=== PATIENT | male | born 1975 | race Caucasian/White ===

== ENCOUNTER 2017-05-11 06:00 | Day surgery (SDC) | payer MEDICARE ==
[~2017-05-11] VITALS: Ht 188 cm; Wt 138.3 kg
--- NOTE | ~2017-05-11 | OP ---
PATIENT NAME: NILESH DUMONT MEDICAL RECORD: [id number] :79 LOCATION:D.OPS ADMISSION DATE: SURGEON: PHU BAKER MD DATE OF OPERATION: 05/11/2017 PREOPERATIVE DIAGNOSES: 1. Right inguinal lymphadenopathy. 2. Coronary artery disease. 3. Hypertension. 4. Diabetes mellitus. 5. Hyperlipidemia. 6. History of pulmonary embolus. 7. Chronic blood thinner use. PROCEDURE: 1. Right inguinal excisional lymph node biopsy. 2. Excision of right inguinal cyst. SURGEON: Phu Baker MD REPORT OF PROCEDURE: The patient's abdomen and right groin were prepped and draped in sterile fashion. An oblique incision was made in the femoral crease and electrocautery was used to dissect through subcutaneous tissue down to the enlarged lymph nodes. The lymph nodes were quite swollen and adherent to the surrounding fatty tissue. I was able to remove a single lymph node with the surrounding fatty tissue and sent it off for permanent specimen. The patient also had an enlarged erythematous mass, a little more medial over the pubic region. There was no purulence excised from this and I did a stab incision over top of it and penetrated the cavity. This did appear to be a cystic cavity and most consistent with a sebaceous cyst. I went ahead and just excised the sebaceous cyst and the surrounding tissues. The cyst in total was approximately 1.5 cm in size. We then irrigated out the wound thoroughly with normal saline. We took care to make sure there was no sign of any active bleeding. The deep tissues were reapproximated with interrupted 3-0 Vicryl. We then infused a total of 10 mL of 0.25% Marcaine with epinephrine. The skin incisions were closed with subcutaneous 5-0 Monocryl and dressed appropriately. COMPLICATIONS: None. CONDITION: Stable. ANESTHESIA: General endotracheal and local. BLOOD LOSS: Minimal. TRANSINT:[id number] Voice Confirmation ID: [id number] DOCUMENT ID: [id number] OPERATIVE REPORT [id number] NILESH DUMONT PHU BAKER MD at 0956 CC: JACLYN DUNCAN MD [id number] DICTATION DATE: 05/11/17 1003 DIAMOND ASSORTER: 05/11/17 1301 [facility] 05/11/17 [facility] [address] [place] [address]
[~2017-05-11 06:00] MED LIST: BETAPACE 80 MG80 MG PO; CATAPRES0.2 MG PO; COREG25 MG PO; COZAAR25 MG PO; HUMULIN R500 U/ML; KLONOPIN1 MG PO; LANTUS SOL100 UNIT/1 SQ; LASIX40 MG PO; LEVEMIR100 U/M1 SQ; NITRO-DUR0.4 MG TD; NORVASC10 MG PO; NOVOLOG100 U/M1 SQ; PLAVIX75 MG PO; XANAX1 MG PO; XARELTO15 MG PO
[2017-05-11 06:59] LABS: HEMATOCRIT 38.6 % (42.0-54.0); HEMOGLOBIN 12.9 g/dL (13.5-17.5); LYMPHOCYTES 35.2 % (15-50); MCH 26.9 pg (26.0-34.0); MCHC 33.4 g/dL (31.0-37.0); MCV 80.6 fL (80.0-100.0); MEAN PLATELET VOLUME 9.8 fL (7.4-10.4); NEUTROPHILS 58.7 % (40-80); RBC 4.79 10x6/uL (4.20-6.10); RDW 12.9 % (11.5-14.5); WBC 6.7 10x3/uL (4.8-10.8)
[2017-05-11] MEDS ORDERED: ABILIFY2 MG PO (07:09)
[2017-05-11] MEDS ORDERED: BAYER CHEWABLE81 MG PO (07:09)
[2017-05-11] MEDS ORDERED: VOLTAREN75 MG PO (07:11)
[2017-05-11] MEDS ORDERED: SOMA350 MG PO (07:11)
[2017-05-11] MEDS ORDERED: ELIQUIS5 MG PO (07:11)
[2017-05-11 07:13] LABS: CALC OSMOLALITY 284 mosm/kg (275-300); CALCIUM 8.4 mg/dL (8.5-10.1); CHLORIDE - SERUM 104 mmol/L (98-107); CREATININE - SERUM 0.9 mg/dL (0.6-1.3); POTASSIUM - SERUM 4.1 mmol/L (3.5-5.1); SODIUM 141 mmol/L (136-145); UREA NITROGEN 10 mg/dL (7-18); eGFR NON AFRICAN AMERICAN > 90 mL/min (90-120)
[2017-05-11] MEDS ORDERED: FUROSEMIDE40 MG PO (07:13)
[2017-05-11] MEDS ORDERED: PROZAC40 MG PO (07:13)
[2017-05-11] MEDS ORDERED: KLOR-CON 1010 MEQ PO (07:13)
[2017-05-11 07:14] LABS: GLUCOSE 187 mg/dL (74-106)
[2017-05-11] MEDS ORDERED: NEURONTIN 300300 MG PO (07:14)
[2017-05-11] MEDS ORDERED: SYNTHROID25 MCG PO (07:19)
[2017-05-11] MEDS ORDERED: MAGNESIUM OXID250 MG PO (07:19)
[2017-05-11] MEDS ORDERED: MECLIZINE HCL25 MG PO (07:20)
[2017-05-11 07:21] LABS: PLATELET COUNT 268 10x3/uL (130-400)
[2017-05-11] MEDS ORDERED: MORPHINE IMMEDI15 MG PO (07:21)
[2017-05-11] MEDS ORDERED: MORPHINE SULFAT15 M4 PO (07:22)
[2017-05-11] MEDS ORDERED: NITROMIST8.5 GM SL (07:23)
[2017-05-11] MEDS ORDERED: PROTONIX40 MG PO (07:23)
[2017-05-11] MEDS ORDERED: PHENERGAN25 MG RC (07:24)
[2017-05-11] MEDS ORDERED: REPATHA SY140 MG/1 M SC (07:25)
[2017-05-11] MEDS ORDERED: FLOMAX0.4 MG PO (07:26)
[2017-05-11] MEDS ORDERED: AMBIEN10 MG PO (07:26)
[2017-05-11 07:35] VITALS: Ht 188 cm; Wt 138.3 kg
[2017-05-11] MEDS ORDERED: HYDROCODONE-APA1 TAB PO (09:59)
== END 2017-05-11 12:30 | disposition home or self-care (01) ==
LOC: D.OPS 06:00 → D.PAN 09:00 → D.OPS 09:00
PROVIDERS: Surgery
DX: R59.0 Localized enlarged lymph nodes (principal); I25.10 Atherosclerotic heart disease of native coronary artery without angina pectoris; I10 Essential (primary) hypertension; E11.9 Type 2 diabetes mellitus without complications; E78.5 Hyperlipidemia, unspecified; I26.99 Other pulmonary embolism without acute cor pulmonale; E03.9 Hypothyroidism, unspecified; K21.9 Gastro-esophageal reflux disease without esophagitis; E66.01 Morbid (severe) obesity due to excess calories; Z68.31 Body mass index [BMI] 31.0-31.9, adult; Z01.812 Encounter for preprocedural laboratory examination

== ENCOUNTER → 2017-07-19 23:48 | Outpatient (CLI) | payer MEDICARE ==
[2017-05-11 07:35] VITALS: BMI 39.2
[~2017-07-19 23:48] MED LIST changes: +ABILIFY2 MG PO; +AMBIEN10 MG PO; +BAYER CHEWABLE81 MG PO; +ELIQUIS5 MG PO; +FLOMAX0.4 MG PO; +FUROSEMIDE40 MG PO; +HYDROCODONE-APA1 TAB PO; +KLOR-CON 1010 MEQ PO; +MAGNESIUM OXID250 MG PO; +MECLIZINE HCL25 MG PO; +MORPHINE IMMEDI15 MG PO; +MORPHINE SULFAT15 M4 PO; +NEURONTIN 300300 MG PO; +NITROMIST8.5 GM SL; +PHENERGAN25 MG RC; +PROTONIX40 MG PO; +PROZAC40 MG PO; +REPATHA SY140 MG/1 M SC; +SOMA350 MG PO; +SYNTHROID25 MCG PO; +VOLTAREN75 MG PO
== END | disposition home or self-care (01) ==
LOC: D.MAMMO 06-23 11:30
DX: Z85.3 Personal history of malignant neoplasm of breast (principal); N63.0 Unspecified lump in unspecified breast; N63.32 Unspecified lump in axillary tail of the left breast

== ENCOUNTER → 2017-08-24 19:19 | Outpatient (CLI) | payer MEDICARE ==
[2017-05-11 07:35] VITALS: BMI 39.2
== END | disposition home or self-care (01) ==
LOC: D.LABREF 19:19
DX: L02.412 Cutaneous abscess of left axilla (principal)

== ENCOUNTER → 2017-12-11 08:24 | Outpatient (CLI) | payer MEDICARE ==
[2017-05-11 07:35] VITALS: BMI 39.2
== END | disposition home or self-care (01) ==
LOC: D.CT 08:24
DX: R59.1 Generalized enlarged lymph nodes (principal)

== ENCOUNTER → 2018-03-06 11:18 | Outpatient (CLI) | payer MEDICARE ==
[2017-05-11 07:35] VITALS: BMI 39.2
[2018-03-06 12:28] LABS: ALBUMIN 3.5 g/dL (3.4-5.0); BILIRUBIN - DIRECT 0.12 mg/dL (0.00-0.30); BILIRUBIN - INDIRECT 0.12 mg/dL (0.00-1.00); BILIRUBIN - TOTAL 0.24 mg/dL (0.2-1.3); PROTEIN - SERUM 7.2 g/dL (6.4-8.2)
== END | disposition home or self-care (01) ==
LOC: D.US 11:18
PROVIDERS: Internal Medicine Gastroenterology
DX: K76.0 Fatty (change of) liver, not elsewhere classified (principal)

== ENCOUNTER → 2018-08-29 07:45 | Outpatient (CLI) | payer MEDICARE ==
[~2018-08-29 07:45] MED LIST changes: +ANORO ELLIPTA1 EACH INH; +ARAVA10 MG PO; +COLCRYS0.6 MG PO; +CYMBALTA30 MG PO; +HYDROCODON-ACE1 EA10 PO; +HYDROCODON-ACE1 EAC7 PO; +LINZESS290 MCG PO; -PHENERGAN25 MG RC; +PHENERGAN6.25 MG/5 PO; +SULFAMETHOXAZOL1 TA3 PO
[2018-08-29 09:11] LABS: ALBUMIN 3.5 g/dL (3.4-5.0); BILIRUBIN - DIRECT 0.11 mg/dL (0.00-0.30); BILIRUBIN - INDIRECT 0.1 mg/dL (0.00-1.00); BILIRUBIN - TOTAL 0.21 mg/dL (0.2-1.3)
== END | disposition home or self-care (01) ==
LOC: D.US 07:45
PROVIDERS: Legal Medicine
DX: K76.0 Fatty (change of) liver, not elsewhere classified (principal)

== ENCOUNTER → 2018-09-25 06:03 | Outpatient (CLI) | payer MEDICARE ==
[~2018-09-25] VITALS: Ht 188 cm; Wt 140.6 kg
[~2018-09-25 06:03] MED LIST changes: -ARAVA10 MG PO; -COLCRYS0.6 MG PO; -CYMBALTA30 MG PO; -HYDROCODON-ACE1 EAC7 PO; -SULFAMETHOXAZOL1 TA3 PO
[2018-09-25 06:27] LABS: APTT 27.7 SECONDS (22.8-39.4); CALC OSMOLALITY 287 mosm/kg (275-300); CALCIUM 8.6 mg/dL (8.5-10.1); CARBON DIOXIDE 31.4 mmol/L (21.0-32.0); CHLORIDE - SERUM 103 mmol/L (98-107); INR 0.94 (0.85-1.17); POTASSIUM - SERUM 4.4 mmol/L (3.5-5.1); SODIUM 140 mmol/L (136-145); UREA NITROGEN 14 mg/dL (7-18); eGFR NON AFRICAN AMERICAN 87 mL/min (90-120)
[2018-09-25 06:28] LABS: GLUCOSE 237 mg/dL (74-106)
[2018-09-25 06:40] LABS: HEMOGLOBIN 12.9 g/dL (13.5-17.5); LYMPHOCYTES 40.2 % (15-50); MCH 28.5 pg (26.0-34.0); MCHC 34.9 g/dL (31.0-37.0); MCV 81.7 fL (80.0-100.0); MEAN PLATELET VOLUME 10.3 fL (7.4-10.4); NEUTROPHILS 49.9 % (40-80); PLATELET COUNT 226 10x3/uL (130-400); RBC 4.53 10x6/uL (4.20-6.10); RDW 13.1 % (11.5-14.5); WBC 5.9 10x3/uL (4.8-10.8)
[2018-09-25 07:14] VITALS: BP 171/88; Ht 188 cm; Wt 140.6 kg
== END | disposition home or self-care (01) ==
LOC: D.OPS 06:03 → EDSTATUS 11:15 → D.PAN 11:15 → D.OPS 11:15
PROVIDERS: Anesthesiology; ATTEND Surgery
DX: Z01.812 Encounter for preprocedural laboratory examination (principal)

== ENCOUNTER 2018-09-28 06:00 | Day surgery (SDC) | payer MEDICARE ==
[~2018-09-28] VITALS: Ht 188 cm; Wt 140.6 kg
[~2018-09-28 06:00] MED LIST changes: -HYDROCODON-ACE1 EA10 PO
[2018-09-28 06:15] LABS: BASOPHILS 0.2 % (0-2); EOSINOPHILS 2.6 % (0-7); HEMOGLOBIN 12.7 g/dL (13.5-17.5); IMMATURE GRANULOCYTES 0.2 % (0-5); LYMPHOCYTES 36.8 % (15-50); MCHC 34.3 g/dL (31.0-37.0); MCV 81.5 fL (80.0-100.0); MEAN PLATELET VOLUME 10.5 fL (7.4-10.4); MONOCYTES 7.5 % (2-11); NEUTROPHILS 52.7 % (40-80); PLATELET COUNT 207 10x3/uL (130-400); RBC 4.54 10x6/uL (4.20-6.10); RDW 13.4 % (11.5-14.5); WBC 6.7 10x3/uL (4.8-10.8)
[2018-09-28 06:38] LABS: CALC OSMOLALITY 285 mosm/kg (275-300); CALCIUM 8.8 mg/dL (8.5-10.1); CARBON DIOXIDE 30.8 mmol/L (21.0-32.0); CHLORIDE - SERUM 103 mmol/L (98-107); SODIUM 137 mmol/L (136-145); UREA NITROGEN 13 mg/dL (7-18); eGFR NON AFRICAN AMERICAN 87 mL/min (90-120)
[2018-09-28 06:46] LABS: GLUCOSE 318 mg/dL (74-106)
[2018-09-28 07:11] VITALS: BP 177/89; Ht 188 cm; Wt 140.6 kg
[2018-09-28] MEDS ORDERED: HYDROCODON-ACE1 EA10 PO (09:00)
--- NOTE | 2018-09-28 09:45 | NUR ---
REC'D FROM RR. DRESSING CDI TO RIGHT GROIN. FSBS 258. ICE WATER BROUGHT TO PATIENT.
--- NOTE | 2018-09-28 10:00 | NUR ---
AMBULATED TO BATHROOM. VOIDED WITHOUT DIFFICULTY.
--- NOTE | 2018-09-28 10:15 | NUR ---
FL TRAY SERVED. DENIES NEEDS.
--- NOTE | 2018-09-28 10:45 | NUR ---
TOLERATED FL DIET. IV DC'D WITH CATHETER INTACT. WRITTEN AND VERBAL DC INST. GIVEN TO PT ALONG WITH RX. VERBALIZED NDERSTANDING.
--- NOTE | 2018-09-28 11:00 | NUR ---
DC'D HOME WITH FAMILY VIA PRIVATE VEHICLE. TAKEN TO VEHICLE VIA WC. STABLE AT TIME OF DC.
--- NOTE | 2018-09-28 14:34 | NUR ---
1 MG OF DILAUDID WASTED WITH Meghan DE JESUS RN TO [facility] CONTAINER.
--- NOTE | 2018-10-05 10:09 | OP ---
PATIENT NAME: NILESH DUMONT MEDICAL RECORD: [id number] :79 LOCATION:D.OPS ADMISSION DATE: SURGEON: PHU BAKER MD DATE OF OPERATION: 09/28/2018 PREOPERATIVE DIAGNOSES: 1. Right inguinal lymphadenopathy. 2. History of right inguinal hamartoma. 3. Coronary artery disease. 4. Hypertension. 5. Diabetes mellitus. 6. Hyperlipidemia. 7. History of pulmonary embolus, on chronic Xarelto. POSTOPERATIVE DIAGNOSES: 1. Right inguinal lymphadenopathy. 2. History of right inguinal hamartoma. 3. Coronary artery disease. 4. Hypertension. 5. Diabetes mellitus. 6. Hyperlipidemia. 7. History of pulmonary embolus, on chronic Xarelto. PROCEDURE: Right inguinal lymph node excisional biopsy times 2. SURGEON: Phu Baker MD REPORT OF PROCEDURE: The patient's right groin was prepped and draped in sterile fashion. An oblique incision was made on the lateral aspect of the patient's right groin just above the inguinal crease. Electrocautery was used to dissect through the subcutaneous tissues and we came down to a firm nodule. This nodule was excised from the surrounding tissue including a small section of adherent fatty tissue. There was an arterial vessel that was connected to this and this was ligated with 3-0 silk tie. We then irrigated out the wound with normal saline and assured there was no bleeding. We put a piece of packing in the wound for the time being and sent the specimen off for permanent. We then approached the more medial lymph node and an oblique incision was made through the inguinal fold medially and electrocautery was used to dissect through the subcutaneous tissues down to the firm nodule. This nodule was excised including a small piece of fatty tissue, which was present. The patient did have an arterial vessel that was encountered and this was ligated with 3-0 silk tie. We irrigated out the wound with normal saline and assured there was no sign of any active bleeding. At this point, we infused a total of 10 mL at the end of the surrounding tissues. The subcutaneous tissues were all reapproximated with interrupted 3-0 Vicryl and the skin was closed with running subcutaneous 5-0 Monocryl. COMPLICATIONS: None. CONDITION: Stable. ANESTHESIA: General endotracheal and local. BLOOD LOSS: 50 mL. OPERATIVE REPORT [id number] NILESH DUMONT TRANSINT:[id number] Voice Confirmation ID: [id number] DOCUMENT ID: [id number] PHU BAKER MD at 1009 CC: CONCHITA ABDALLA MD [id number] DICTATION DATE: 09/28/18904 CHROMIUM PLATER: 09/28/18 1003 [facility] 09/28/18 [place] [id number] [place] [id number]
== END 2018-09-28 11:00 | disposition home or self-care (01) ==
LOC: D.OPS 06:00 → D.PAN 08:00 → D.OPS 08:00
PROVIDERS: ATTEND Surgery
DX: D36.0 Benign neoplasm of lymph nodes (principal); I10 Essential (primary) hypertension; E11.9 Type 2 diabetes mellitus without complications; E78.5 Hyperlipidemia, unspecified; Z86.711 Personal history of pulmonary embolism; Z79.01 Long term (current) use of anticoagulants; I25.10 Atherosclerotic heart disease of native coronary artery without angina pectoris; Z01.812 Encounter for preprocedural laboratory examination

== ENCOUNTER 2018-10-05 21:09 | Emergency (ER) | payer MEDICARE ==
[~2018-10-05 21:09] MED LIST changes: +HYDROCODON-ACE1 EA10 PO
[2018-10-05 21:15] VITALS: BMI 38.6
[2018-10-05] MEDS ORDERED: COLCRYS0.6 MG PO (21:18)
[2018-10-05] MEDS ORDERED: ARAVA10 MG PO (21:19)
[2018-10-05 21:43] LABS: BASOPHILS 0.3 % (0-2); EOSINOPHILS 2.2 % (0-7); HEMATOCRIT 39.2 % (42.0-54.0); HEMOGLOBIN 13.5 g/dL (13.5-17.5); IMMATURE GRANULOCYTES 0.3 % (0-5); LYMPHOCYTES 42.9 % (15-50); MCH 28.2 pg (26.0-34.0); MCHC 34.4 g/dL (31.0-37.0); MEAN PLATELET VOLUME 10.7 fL (7.4-10.4); MONOCYTES 6.9 % (2-11); NEUTROPHILS 47.4 % (40-80); PLATELET COUNT 269 10x3/uL (130-400); RBC 4.78 10x6/uL (4.20-6.10); RDW 13.3 % (11.5-14.5); WBC 7.2 10x3/uL (4.8-10.8)
[2018-10-05 21:47] LABS: APPEARANCE CLEAR (CLEAR); BILIRUBIN NEGATIVE (NEGATIVE); COLOR YELLOW (YELLOW); GLUCOSE 250 mg/dL (NEGATIVE); KETONE NEGATIVE (NEGATIVE); NITRITE NEGATIVE (NEGATIVE); PROTEIN TRACE mg/dL (NEGATIVE); UROBILINOGEN NORMAL (NORMAL)
[2018-10-05 21:56] LABS: ALBUMIN 3.4 g/dL (3.4-5.0); ALKALINE PHOSPHATASE 106 U/L (46-116); ALT (SGPT) 32 U/L (10-68); BILIRUBIN - TOTAL 0.25 mg/dL (0.2-1.3); CALC OSMOLALITY 286 mosm/kg (275-300); CALCIUM 9.2 mg/dL (8.5-10.1); CARBON DIOXIDE 31.7 mmol/L (21.0-32.0); CHLORIDE - SERUM 100 mmol/L (98-107); CREATININE - SERUM 1.1 mg/dL (0.6-1.3); GLUCOSE 291 mg/dL (74-106); POTASSIUM - SERUM 4.2 mmol/L (3.5-5.1); PROTEIN - SERUM 7.7 g/dL (6.4-8.2); SODIUM 137 mmol/L (136-145); UREA NITROGEN 18 mg/dL (7-18); eGFR NON AFRICAN AMERICAN 78 mL/min (90-120)
[2018-10-06] MEDS ORDERED: HYDROCODON-ACE1 EAC7 PO (00:37)
[2018-10-06] MEDS ORDERED: SULFAMETHOXAZOL1 TA3 PO (00:37)
[2018-10-06 00:47] VITALS: BP 140/63
[2018-11-08] MEDS ORDERED: CYMBALTA30 MG PO (14:57)
== END 2018-10-06 00:48 | disposition home or self-care (01) ==
LOC: D.ER 21:09
PROVIDERS: Family Medicine
DX: R10.31 Right lower quadrant pain (principal); I89.8 Other specified noninfective disorders of lymphatic vessels and lymph nodes

== ENCOUNTER 2018-10-06 21:43 | Emergency (ER) | payer MEDICARE ==
[~2018-10-06 21:43] MED LIST changes: +ARAVA10 MG PO; +COLCRYS0.6 MG PO; +HYDROCODON-ACE1 EAC7 PO; +SULFAMETHOXAZOL1 TA3 PO
[2018-10-06 21:54] VITALS: BMI 38.6
[2018-10-06 23:05] VITALS: BP 168/81
[2018-11-08] MEDS ORDERED: CYMBALTA30 MG PO (14:57)
== END 2018-10-06 23:05 | disposition home or self-care (01) ==
LOC: D.ER 21:43
DX: I89.8 Other specified noninfective disorders of lymphatic vessels and lymph nodes (principal)

== ENCOUNTER → 2018-10-16 16:42 | Outpatient (CLI) | payer MEDICARE ==
[2018-10-06 21:54] VITALS: BMI 38.6
[2018-10-23 20:06] LABS: AEROBE ID Final report (())
== END | disposition home or self-care (01) ==
LOC: D.LABREF 16:42
PROVIDERS: ATTEND Surgery
DX: L76.34 Postprocedural seroma of skin and subcutaneous tissue following other procedure (principal)

== ENCOUNTER 2018-11-09 07:15 | Day surgery (SDC) | payer MEDICARE ==
[2018-11-08 15:33] LABS: HEMATOCRIT 39.5 % (42.0-54.0); HEMOGLOBIN 13.3 g/dL (13.5-17.5); MCH 27.7 pg (26.0-34.0); MCHC 33.7 g/dL (31.0-37.0); MCV 82.3 fL (80.0-100.0); MEAN PLATELET VOLUME 10.5 fL (7.4-10.4); RBC 4.8 10x6/uL (4.20-6.10); RDW 13.2 % (11.5-14.5); WBC 6.6 10x3/uL (4.8-10.8)
[2018-11-08 15:47] LABS: CALC OSMOLALITY 281 mosm/kg (275-300); CALCIUM 8.7 mg/dL (8.5-10.1); CARBON DIOXIDE 31.2 mmol/L (21.0-32.0); CHLORIDE - SERUM 101 mmol/L (98-107); INR 0.96 (0.85-1.17); POTASSIUM - SERUM 4.3 mmol/L (3.5-5.1); PROTIME 12.3 SECONDS (11.6-15.0); SODIUM 138 mmol/L (136-145); UREA NITROGEN 19 mg/dL (7-18); eGFR NON AFRICAN AMERICAN 87 mL/min (90-120)
[2018-11-08 15:49] LABS: GLUCOSE 168 mg/dL (74-106)
[~2018-11-09] VITALS: Ht 188 cm; Wt 138.8 kg
[~2018-11-09 07:15] MED LIST changes: +CYMBALTA30 MG PO
[2018-11-09] MEDS ORDERED: ARAVA10 MG PO (08:10)
[2018-11-09 08:17] VITALS: Ht 188 cm; Wt 138.8 kg
--- NOTE | 2018-11-09 15:59 | HP ---
PATIENT: NILESH DUMONT MEDICAL RECORD: [id number] ACCOUNT: [id number] LOCATION:ANGEL : 79 ADMISSION DATE: 11/09/18 PCP: JACLYN DUNCAN MD HISTORY AND PHYSICAL EXAMINATION CHIEF COMPLAINT: Infection. HISTORY OF PRESENT ILLNESS: I am investigation division sergeant for Dr. Baker. The patient has purulence coming out through a groin incision. My plan is going to be excisional debridements with drainage of the abscess. This does not appear to be lymphatic fluid. Instead, it appears to be pus. HOME MEDICATIONS: Please see the nursing list. ALLERGIES: ERYTHROMYCIN. SOCIAL HISTORY: Nonsmoker. PAST MEDICAL AND SURGICAL HISTORY: Coronary artery disease, hypertension, myocardial infarctions times 3, insulin-dependent diabetes mellitus, and hypothyroidism, on replacement therapy. PHYSICAL EXAMINATION: GENERAL: The patient does not appear acutely ill. He does not appear chronically ill. VITAL SIGNS: Reviewed. EARS: External ears appear normal. EYES: Extraocular movements are intact. NECK: Trachea is midline. CHEST: No intercostal retractions. PULMONARY: Nonlabored, no stridor. ABDOMEN: Protuberant. IMPRESSION: Right groin postoperative abscess. PLAN: Plan will be debridement in the operating room. TRANSINT:[id number] Voice Confirmation ID: [id number] DOCUMENT ID: [id number] GISELL REVELES MD at 1559 CC: PHU BAKER and CASSIUS VALDIVIA MD [id number] DICTATION DATE: 11/09/18 1116 ENERGY MANAGER: 11/09/18 1128 [facility] 11/09/18 [place] [address] [place] [address]
--- NOTE | 2018-11-12 13:44 | OP ---
PATIENT NAME: NILESH DUMONT MEDICAL RECORD: [id number] :79 LOCATION:D.OPS ADMISSION DATE: SURGEON: PETROS REVELES MD DATE OF OPERATION: 11/09/2018 PREOPERATIVE DIAGNOSES: Postoperative right groin wound infection, please see dimensions below. PROCEDURE: 1. Excisional debridement of right groin wound. The debridement included skin and subcutaneous tissue as well as necrotic material. The excision measured 3.2 cm x 1.8 cm. I debrided back sharply to healthy bleeding tissue. 2. Excisional debridement of right groin wound #2. The debridement included skin, subcutaneous tissue, granulation tissue, as well as necrotic material. Dimensions of debridement, including margins, measured 2.8 x 1.6 cm. SURGEON: Petros Reveles MD PARAMEDICAL AIDE: None. BLOOD LOSS: Minimal. ANESTHESIA: General. COMPLICATIONS: None. The risks, possible complications, and alternatives to procedure were explained to the patient. He elects to proceed. OPERATIVE COURSE: The patient was conveyed to the operating room electively on 11/09/2018. General anesthesia was induced by anesthesia staff. The right groin was sterilely prepped and draped. Utilizing hemostats, I opened up both wounds. The dimensions are listed above. I then sharply excised surrounding connective tissue. The dimensions of the excision as listed above. Meticulous hemostasis was achieved with electrocautery. At the base of both wounds was a bowl of necrotic material, which was removed. After it was removed and I performed curettage, both wounds contained pretty healthy looking granulation tissue. I then packed vancomycin powder into both wounds and then they were packed with iodoform gauze. Sterile dressings were applied. The patient was then extubated and conveyed to post-anesthesia care unit where he was in stable condition. He already has analgesia at home. He will be dismissed home with doxycycline. He is to follow up with Dr. Baker or his nurse in the office on Monday. TRANSINT:[id number] Voice Confirmation ID: [id number] DOCUMENT ID: [id number] OPERATIVE REPORT [id number] NILESH DUMONT PETROS REVELES MD at 1344 CC: PHU BAKER [id number] DICTATION DATE: 11/09/18 155 HEALTH SCIENCES MANAGER: 11/09/182121 [facility] 11/09/18 [facility] [address] [place] [address]
== END 2018-11-09 11:30 | disposition home or self-care (01) ==
LOC: D.OPS 07:15 → D.PAN 09:30 → D.OPS 11:30
PROVIDERS: Anesthesiology; ATTEND Surgery
DX: T81.41XA Infection following a procedure, superficial incisional surgical site, initial encounter (principal); Y83.8 Other surgical procedures as the cause of abnormal reaction of the patient, or of later complication, without mention of misadventure at the time of the procedure; Z01.812 Encounter for preprocedural laboratory examination

== ENCOUNTER → 2018-11-16 07:35 | Outpatient (CLI) | payer MEDICARE ==
[2018-11-09 08:17] VITALS: BMI 39.3
--- NOTE | 2018-11-21 08:20 | EC ---
PATIENT:NILESH DUMONT DATE OF SERVICE: 11/16/18 SEX: M MEDICAL RECORD: [id number] DATE OF : 79 LOCATION:[facility] AGE OF PATIENT: 43 ADMISSION DATE: 11/16/18 REFERRING PHYSICIAN: INTERPRETING PHYSICIAN: CASSIUS VALDIVIA MD ECHOCARDIOGRAM REPORT ECHO CHARGES 4 ECHO COMPLETE Date: 11/16/18 CLINICAL DIAGNOSIS: CAD HX OF STENTS/HTN ECHOCARDIOGRAPHIC MEASUREMENTS (adult normal given) AC root (d.<3.7cm) 3.3 cm LV Septum d (<1.2 cm> 1.3 cm Valve Excursion 2.0 cm LV Septum (systole) 1.9 cm Left Atria (s.<4.0cm> 4.3 cm LVPW d(<1.2cm) 1.5 cm RV (d.<2.3cm) 4.1 cm LVPW (sytole) 1.7 cm LV diastole(<5.6CM) 6.2 cm MV E-F(>70mm/sec) cm LV systole 4.0 cm LVOT Diameter 2.1 cm MV exc.(>10mm) 1.8 cm Est.ejection fraction (50-75%) % DOPPLER: LVIT cm/sec A 96.0 cm/sec E 113 cm/sec LA cm/sec RVSP 34 mmHg LVOT 104 cm/sec AOP1/2T m/s Asc. Ao 142 cm/sec RVOT 92 cm/sec RA cm/sec PA 118 cm/sec AV Gradient Peak 8.05 mmHg AV Mean 4.66 mmHg AV Area 2.4 cm MV Gradient Peak 4.97 mmHg MV Mean 2.58 mmHg MV Area cm COMMENTS: Public Health Clinical Nurse Specialist: Oswaldo GAGNON Meteorologist Liaison: 3 Dr. Centeno TAPE# PACS Pericardial Effusion N DATE OF SERVICE: 11/16/2018 Adequate 2-D echo, color-flow and spectral Doppler, and M-mode. LVH is present. LV internal dimensions are normal. Wall motion is normal. EF is greater than or equal to 55%. Aortic valve is tricuspid. No evidence of stenosis by Doppler interrogation. Left atrium is minimally dilated to upper limits of normal at 4.1. Mitral valve shows no prolapse. Trace MR. Right-sided chambers are grossly normal. Trace TR. ECHOCARDIOGRAM REPORT [id number] NILESH DUMONT TRANSINT:[id number] Voice Confirmation ID: [id number] DOCUMENT ID: [id number] CASSIUS VALDIVIA MD at 0820 CC: [id number] DICTATION DATE: 11/20/18 1318 WEATHERSEAL TECHNICIAN: 11/20/18 1338 [facility] 11/16/18 [place] [id number] [place] [id number]
== END | disposition home or self-care (01) ==
LOC: D.HCCARDIO 07:35
PROVIDERS: ATTEND Internal Medicine Interventional Cardiology
DX: I25.10 Atherosclerotic heart disease of native coronary artery without angina pectoris (principal)

== ENCOUNTER → 2019-02-20 14:12 | Outpatient (CLI) | payer MEDICARE ==
[2018-11-09 08:17] VITALS: BMI 39.3
[~2019-02-20 14:12] MED LIST changes: +CATAPRES0.1 MG PO; +CIMZIA400 MG/2 M SQ; +CYCLOBENZAPRINE10 MG PO; +DILTIAZEM 24HR240 M4 PO; +HUMULIN 70100 UNIT/1 SC; +NARCAN SPRAY IH
== END | disposition home or self-care (01) ==
LOC: D.CT 14:12
PROVIDERS: ATTEND Legal Medicine
DX: N64.89 Other specified disorders of breast (principal)

== ENCOUNTER → 2019-03-01 07:26 | Outpatient (CLI) | payer MEDICARE ==
[2018-11-09 08:17] VITALS: BMI 39.3
[2019-03-01 07:59] LABS: ALBUMIN 3.3 g/dL (3.4-5.0); BILIRUBIN - DIRECT 0.07 mg/dL (0.00-0.30); BILIRUBIN - INDIRECT 0.33 mg/dL (0.00-1.00); BILIRUBIN - TOTAL 0.4 mg/dL (0.2-1.3); PROTEIN - SERUM 7.5 g/dL (6.4-8.2)
== END ==
LOC: D.US 07:26
PROVIDERS: ATTEND Internal Medicine Gastroenterology
DX: K76.0 Fatty (change of) liver, not elsewhere classified (principal)

== ENCOUNTER 2019-03-07 05:52 | Day surgery (SDC) | payer MEDICARE ==
[2019-03-06 14:36] LABS: HEMATOCRIT 40.3 % (42.0-54.0); HEMOGLOBIN 13.5 g/dL (13.5-17.5); MCHC 33.5 g/dL (31.0-37.0); MCV 83.6 fL (80.0-100.0); MEAN PLATELET VOLUME 10.5 fL (7.4-10.4); PLATELET COUNT 266 10x3/uL (130-400); RBC 4.82 10x6/uL (4.20-6.10); RDW 13.6 % (11.5-14.5); WBC 5.5 10x3/uL (4.8-10.8)
[2019-03-06 14:47] LABS: APTT 27.8 SECONDS (22.8-39.4); INR 0.96 (0.85-1.17); PROTIME 12.3 SECONDS (11.6-15.0)
[2019-03-06 14:48] LABS: CALC OSMOLALITY 286 mosm/kg (275-300); CALCIUM 8.7 mg/dL (8.5-10.1); CHLORIDE - SERUM 101 mmol/L (98-107); POTASSIUM - SERUM 4.3 mmol/L (3.5-5.1); SODIUM 138 mmol/L (136-145); UREA NITROGEN 17 mg/dL (7-18); eGFR NON AFRICAN AMERICAN 87 mL/min (90-120)
[2019-03-06 14:51] LABS: GLUCOSE 266 mg/dL (74-106)
[2019-03-06 16:10] LABS: EOSINOPHILS 2 % (0-7); LYMPHOCYTES 57 % (15-50); MONOCYTES 5 % (2-11); NEUTROPHILS 37 % (40-80); PLATELET ESTIMATE NORMAL
[~2019-03-07] VITALS: Ht 188 cm; Wt 148.3 kg
[2019-03-07 07:17] VITALS: BP 163/82; Ht 188 cm; Wt 148.3 kg
--- NOTE | 2019-03-07 09:17 | NUR ---
SCD NOT IN PLACE DUE TO HX OF BLOOD CLOTS. DR BAKER INFORMED. NO NEW ORDERS RECEIVED.
[2019-03-07] MEDS ORDERED: HYDROCODON-ACE1 EA10 PO (09:39)
--- NOTE | 2019-03-12 14:22 | OP ---
PATIENT NAME: NILESH DUMONT MEDICAL RECORD: [id number] :79 LOCATION:D.OPS ADMISSION DATE: SURGEON: SEAN BAKER MD DATE OF OPERATION: 03/07/2019 PREOPERATIVE DIAGNOSES: 1. Right nipple discharge. 2. Coronary artery disease. 3. DVT of the lower extremity. 4. Chronic Eliquis use. 5. Hypertension. 6. Hypercholesterolemia. POSTOPERATIVE DIAGNOSES: 1. Right nipple discharge. 2. Coronary artery disease. 3. DVT of the lower extremity. 4. Chronic Eliquis use. 5. Hypertension. 6. Hypercholesterolemia. PROCEDURE: Excisional right subareolar breast biopsy. SURGEON: Sean Baker MD REPORT OF PROCEDURE: The patient's right breast was prepped and draped in sterile fashion. A semicircular incision was made on the superior half of the patient's nipple areolar complex on the right side. A core of subcutaneous fatty tissue and breast tissue was removed using electrocautery. Any bleeding was then treated with electrocautery. We then irrigated out the wound with normal saline. The subcutaneous tissues were reapproximated with interrupted 3-0 Vicryl and the skin was closed with running subcutaneous 5-0 Monocryl. A 5 mL of 0.25% Marcaine with epinephrine was infused into the surrounding tissues and the wound was dressed appropriately. COMPLICATIONS: None. CONDITION: Stable. ANESTHESIA: General endotracheal and local. BLOOD LOSS: Minimal. TRANSINT:[id number] Voice Confirmation ID: [id number] DOCUMENT ID: [id number] SEAN BAKER MD at 1422 CC: CONCHITA ABDALLA MD and JACLYN DUNCAN MD [id number] DICTATION DATE: 03/07/19 0944 WHITING CAN WORKER: 03/07/19 1005 [facility] 03/07/19 [place] [id number]
== END 2019-03-07 11:00 | disposition home or self-care (01) ==
LOC: D.OPS 05:52 → D.PAN 08:15 → D.OPS 11:00
PROVIDERS: Anesthesiology; ATTEND Surgery
DX: N64.52 Nipple discharge (principal); I25.10 Atherosclerotic heart disease of native coronary artery without angina pectoris; I10 Essential (primary) hypertension; E78.5 Hyperlipidemia, unspecified

== ENCOUNTER 2019-05-06 10:38 | Day surgery (SDC) | payer MEDICARE ==
[~2019-05-06] VITALS: Ht 188 cm; Wt 142.9 kg
--- NOTE | ~2019-05-06 | OP ---
PATIENT NAME: NILESH DUMONT MEDICAL RECORD: [id number] :79 LOCATION:D.OPS ADMISSION DATE: SURGEON: SANDRA BERGERON MD DATE OF OPERATION: 05/06/2019 PREOPERATIVE DIAGNOSIS: Wood fracture - metatarsal fracture of the right fifth metatarsal. POSTOPERATIVE DIAGNOSIS: Owod fracture - metatarsal fracture of the right fifth metatarsal. PROCEDURE: ORIF of the right fifth metatarsal fracture. SURGEON: Sandra Bergeron MD BORING MACHINE OPERATOR: Juan Jose Barahona. INTRAOPERATIVE COMPLICATIONS: None. SUMMARY OF PATHOLOGIC FINDINGS: The patient had a fracture gap, after screw in, then the fracture gap closed nicely as seen on fluoroscopy. OPERATIVE SUMMARY IN DETAIL: After obtaining the appropriate preoperative orthopedic surgery consent as well as anesthetic consultation, evaluation and clearance, the patient was brought to the operating room and placed on the operating table in the supine position. After general laryngeal mask administered, tourniquet was placed on proximal aspect of the right lower extremity. Right lower extremity was then prepped and draped in routine sterile fashion. The patient was placed in supine position. At this point, proper timeout was taken and agreed upon by all. The leg was elevated and exsanguinated and tourniquet was inflated to 250 mmHg. Under fluoroscopic guidance, a guide pin for the 4.0 screw from [employer] that is Fixos 2 was placed on the AP and lateral planes. Appropriate drilling was followed by insertion of the screw as the screw inserted and compressed, the fracture site itself completely disappeared. Having completed this, the very small puncture incision was closed with 4-0 Prolene. Sterile dressings were applied. The patient's tourniquet was deflated. The patient was awakened, taken to the recovery room in stable condition. All final needle and sponge counts were correct. TRANSINT:[id number] Voice Confirmation ID: [id number] DOCUMENT ID: [id number] OPERATIVE REPORT [id number] NILESH DUMONT MD, SANDRA TANG CC: [id number] DICTATION DATE: 05/06/19 1528 ANNUAL GIVING OFFICER: 05/06/[address] [facility] 05/06/19 [place] [id number] [place] [address]
[2019-05-06 11:11] LABS: HEMATOCRIT 41.7 % (42.0-54.0); HEMOGLOBIN 14.1 g/dL (13.5-17.5); MCH 28.3 pg (26.0-34.0); MCHC 33.8 g/dL (31.0-37.0); MCV 83.7 fL (80.0-100.0); RBC 4.98 10x6/uL (4.20-6.10); RDW 13.6 % (11.5-14.5); WBC 6.9 10x3/uL (4.8-10.8)
[2019-05-06 11:20] LABS: CALC OSMOLALITY 285 mosm/kg (275-300); CALCIUM 8.8 mg/dL (8.5-10.1); CARBON DIOXIDE 27.4 mmol/L (21.0-32.0); CHLORIDE - SERUM 101 mmol/L (98-107); CREATININE - SERUM 1.1 mg/dL (0.6-1.3); POTASSIUM - SERUM 4.7 mmol/L (3.5-5.1); SODIUM 136 mmol/L (136-145); UREA NITROGEN 18 mg/dL (7-18); eGFR NON AFRICAN AMERICAN 78 mL/min (90-120)
[2019-05-06 11:23] LABS: GLUCOSE 316 mg/dL (74-106)
[2019-05-06 12:50] VITALS: Ht 188 cm; Wt 142.9 kg
--- NOTE | 2019-05-06 17:02 | NUR ---
DC INSTRUCTIONS GIVEN TO PT/SPOUSE. STATE UNDERSTANDING. DC'D IV CATH FULLY INTACT.
--- NOTE | 2019-05-06 17:08 | NUR ---
PT LEFT UNIT VIA WC AT 1706
== END 2019-05-06 17:06 | disposition home or self-care (01) ==
LOC: D.OPS 10:38 → D.PAN 14:30 → D.OPS 17:06
PROVIDERS: Anesthesiology; ATTEND Orthopaedic Surgery
DX: S92.351A Displaced fracture of fifth metatarsal bone, right foot, initial encounter for closed fracture (principal); I25.10 Atherosclerotic heart disease of native coronary artery without angina pectoris; E78.5 Hyperlipidemia, unspecified; E11.9 Type 2 diabetes mellitus without complications; I10 Essential (primary) hypertension; Z79.4 Long term (current) use of insulin

== ENCOUNTER 2019-06-29 20:52 | Emergency (ER) | payer MEDICARE ==
[~2019-06-29] VITALS: Ht 188 cm; Wt 143.6 kg
[2019-06-29 21:04] VITALS: Ht 188 cm; Wt 143.6 kg
[2019-06-29] MEDS ORDERED: ELIQUIS2.5 MG PO (21:06)
[2019-06-29] MEDS ORDERED: ANORO ELLIPTA1 EACH INH (21:06)
[2019-06-29] MEDS ORDERED: CARDURA2 MG PO (21:08)
[2019-06-29] MEDS ORDERED: FOLIC ACID1 MG PO (21:08)
[2019-06-29] MEDS ORDERED: HUMULIN R100 UNIT/1 SC (21:10)
[2019-06-29] MEDS ORDERED: METHOTREXATE2.5 MG PO (21:11)
[2019-06-29 21:56] LABS: BASOPHILS 0.2 % (0-2); EOSINOPHILS 1.8 % (0-7); HEMATOCRIT 38.1 % (42.0-54.0); HEMOGLOBIN 12.7 g/dL (13.5-17.5); IMMATURE GRANULOCYTES 0.4 % (0-5); LYMPHOCYTES 36.9 % (15-50); MCH 27.9 pg (26.0-34.0); MCHC 33.3 g/dL (31.0-37.0); MCV 83.7 fL (80.0-100.0); MONOCYTES 8.4 % (2-11); NEUTROPHILS 52.3 % (40-80); PLATELET COUNT 263 10x3/uL (130-400); RBC 4.55 10x6/uL (4.20-6.10); RDW 13.9 % (11.5-14.5); WBC 9.5 10x3/uL (4.8-10.8)
[2019-06-29 22:05] LABS: CALC OSMOLALITY 285 mosm/kg (275-300); CALCIUM 8.9 mg/dL (8.5-10.1); CARBON DIOXIDE 29.2 mmol/L (21.0-32.0); CHLORIDE - SERUM 101 mmol/L (98-107); CREATININE - SERUM 1.1 mg/dL (0.6-1.3); GLUCOSE 302 mg/dL (74-106); POTASSIUM - SERUM 4.2 mmol/L (3.5-5.1); SODIUM 137 mmol/L (136-145); UREA NITROGEN 16 mg/dL (7-18); eGFR NON AFRICAN AMERICAN 78 mL/min (90-120)
[2019-06-29 22:14] LABS: ALBUMIN 3.1 g/dL (3.4-5.0); ALKALINE PHOSPHATASE 107 U/L (30-120); ALT (SGPT) 48 U/L (10-68); BILIRUBIN - TOTAL 0.25 mg/dL (0.2-1.3)
[2019-06-29] MEDS ORDERED: TAMIFLU75 MG PO (22:19)
[2019-06-29] MEDS ORDERED: TESSALON PERLE100 MG PO (22:19)
[2019-06-29 22:41] VITALS: BP 191/97
== END 2019-06-29 22:41 | disposition home or self-care (01) ==
LOC: D.ER 20:52
PROVIDERS: Family Medicine
DX: J11.1 Influenza due to unidentified influenza virus with other respiratory manifestations (principal); E11.9 Type 2 diabetes mellitus without complications; Z79.4 Long term (current) use of insulin; K76.0 Fatty (change of) liver, not elsewhere classified; I25.2 Old myocardial infarction; I10 Essential (primary) hypertension; Z95.5 Presence of coronary angioplasty implant and graft

== ENCOUNTER 2019-09-10 01:33 | Emergency (ER) | payer MEDICARE ==
[~2019-09-10] VITALS: Ht 188 cm; Wt 143.6 kg
[~2019-09-10 01:33] MED LIST changes: +CARDURA2 MG PO; +ELIQUIS2.5 MG PO; +FOLIC ACID1 MG PO; +HUMULIN R100 UNIT/1 SC; +METHOTREXATE2.5 MG PO; +TAMIFLU75 MG PO; +TESSALON PERLE100 MG PO
[2019-09-10 01:40] VITALS: Ht 188 cm; Wt 143.6 kg
[2019-09-10] MEDS ORDERED: ELIQUIS5 MG PO (01:49)
[2019-09-10] MEDS ORDERED: CATAPRES0.1 MG PO (01:50)
[2019-09-10] MEDS ORDERED: PLAVIX75 MG PO (01:51)
[2019-09-10 02:31] LABS: HEMATOCRIT 40.8 % (42.0-54.0); HEMOGLOBIN 13.3 g/dL (13.5-17.5); LYMPHOCYTES 38.9 % (15-50); MCH 26.8 pg (26.0-34.0); MCHC 32.6 g/dL (31.0-37.0); MCV 82.1 fL (80.0-100.0); NEUTROPHILS 53.1 % (40-80); PLATELET COUNT 302 10x3/uL (130-400); RBC 4.97 10x6/uL (4.20-6.10); RDW 13.4 % (11.5-14.5); WBC 7.3 10x3/uL (4.8-10.8)
[2019-09-10 02:37] LABS: CALC OSMOLALITY 281 mosm/kg (275-300); CALCIUM 8.7 mg/dL (8.5-10.1); CARBON DIOXIDE 29.2 mmol/L (21.0-32.0); CHLORIDE - SERUM 99 mmol/L (98-107); CREATININE - SERUM 1.1 mg/dL (0.6-1.3); GLUCOSE 293 mg/dL (74-106); POTASSIUM - SERUM 4.2 mmol/L (3.5-5.1); SODIUM 135 mmol/L (136-145); UREA NITROGEN 14 mg/dL (7-18); eGFR NON AFRICAN AMERICAN 78 mL/min (90-120)
[2019-09-10 02:50] LABS: ALBUMIN 3.3 g/dL (3.4-5.0); ALKALINE PHOSPHATASE 128 U/L (30-120); ALT (SGPT) 40 U/L (10-68); BILIRUBIN - TOTAL 0.13 mg/dL (0.2-1.3); MAGNESIUM - SERUM 1.6 mg/dL (1.8-2.4); PRO BNP 66 pg/mL (0-125); PROTEIN - SERUM 7.4 g/dL (6.4-8.2); TROPONIN-I < 0.017 ng/mL (0.000-0.060)
[2019-09-10] MEDS ORDERED: COZAAR50 MG PO (03:45)
[2019-09-10 04:16] VITALS: BP 142/77
== END 2019-09-10 04:16 | disposition home or self-care (01) ==
LOC: D.ER 01:33
PROVIDERS: Emergency Medicine
DX: I11.9 Hypertensive heart disease without heart failure (principal); E66.01 Morbid (severe) obesity due to excess calories; R00.0 Tachycardia, unspecified; E11.9 Type 2 diabetes mellitus without complications; I10 Essential (primary) hypertension; I25.2 Old myocardial infarction; K76.0 Fatty (change of) liver, not elsewhere classified; E07.9 Disorder of thyroid, unspecified; Z79.4 Long term (current) use of insulin

== ENCOUNTER → 2019-10-09 18:56 | Outpatient (CLI) | payer MEDICARE ==
[2019-09-10 01:40] VITALS: BMI 40.6
[~2019-10-09 18:56] MED LIST changes: +COZAAR50 MG PO
[2019-10-09 19:16] LABS: HEMATOCRIT 41.1 % (42.0-54.0); HEMOGLOBIN 13.2 g/dL (13.5-17.5); MCH 27.3 pg (26.0-34.0); MCHC 32.1 g/dL (31.0-37.0); MCV 85.1 fL (80.0-100.0); MEAN PLATELET VOLUME 10.6 fL (7.4-10.4); PLATELET COUNT 333 10x3/uL (130-400); RBC 4.83 10x6/uL (4.20-6.10); RDW 13.8 % (11.5-14.5); WBC 8.4 10x3/uL (4.8-10.8)
[2019-10-09 19:50] LABS: EOSINOPHILS 5 % (0-7); LYMPHOCYTES 38 % (15-50); MONOCYTES 3 % (2-11); NEUTROPHILS 54 % (40-80); PLATELET ESTIMATE NORMAL
== END | disposition home or self-care (01) ==
LOC: D.LABREF 18:56
PROVIDERS: ATTEND Legal Medicine
DX: R59.0 Localized enlarged lymph nodes (principal)

== ENCOUNTER → 2019-12-02 10:50 | Outpatient (CLI) | payer MEDICARE ==
[2019-09-10 01:40] VITALS: BMI 40.6
== END | disposition home or self-care (01) ==
LOC: D.CT 10:50
PROVIDERS: ATTEND Legal Medicine
DX: R59.0 Localized enlarged lymph nodes (principal)

== ENCOUNTER → 2019-12-26 08:31 | Outpatient (CLI) | payer MEDICARE ==
[2019-09-10 01:40] VITALS: BMI 40.6
[2019-12-26 09:43] LABS: ALBUMIN 3.5 g/dL (3.4-5.0); BILIRUBIN - DIRECT 0.05 mg/dL (0.00-0.30); BILIRUBIN - INDIRECT 0.17 mg/dL (0.00-1.00); BILIRUBIN - TOTAL 0.22 mg/dL (0.2-1.3); PROTEIN - SERUM 7.1 g/dL (6.4-8.2)
== END | disposition home or self-care (01) ==
LOC: D.LAB 09-13 10:15 → D.US 09-13 10:30 → D.LAB 11-08 10:30 → D.US 11-08 10:30 → D.LAB 11-08 11:00 → D.US 08:31
PROVIDERS: ATTEND Internal Medicine Gastroenterology
DX: K76.0 Fatty (change of) liver, not elsewhere classified (principal)